=== PATIENT | female | born 1995 | race Caucasian/White ===

== ENCOUNTER 2016-10-06 10:04 | Emergency (ER) | payer OTHER ==
[~2016-10-06] VITALS: Ht 157.5 cm; Wt 81.8 kg
[~2016-10-06 10:04] MED LIST: AMOXICILLIN 50500 MG PO; NAPROSYN500 MG PO; NORCO 325 MG-7.1 TAB PO; PREDNISONE20 MG PO; PRENATAL1 TA7 PO; ULTRAM 50MG TAB50 MG PO; ZOFRAN 4MG T4 MG/TAB PO
[2016-10-06 10:08] VITALS: BP 142/79; PULSE 79
[2016-10-06] MEDS ORDERED: FLEXERIL 1010 MG/TAB PO (10:13)
[2016-10-06] MEDS ORDERED: WELLBUTRIN XL150 MG PO (10:13)
[2016-10-06] MEDS ORDERED: ATIVAN 1MG T1 MG/TAB PO (11:13)
[2016-10-06 11:21] VITALS: TEMP 98.1
== END 2016-10-06 11:22 | disposition home or self-care (01) ==
LOC: COL.ER 10:04
DX: M62.830 Muscle spasm of back (principal); M54.89 Other dorsalgia
CPT/HCPCS: J1885

== ENCOUNTER 2016-10-16 14:19 | Day surgery (SDC) | payer OTHER ==
[~2016-10-16] VITALS: Ht 157.5 cm; Wt 81.8 kg
[2016-10-16] VITALS (9 sets, daily range): BP systolic 105–132; BP diastolic 64–79; PULSE 58–72; TEMP 97.4–97.6
[~2016-10-16 14:19] MED LIST changes: +ATIVAN 1MG T1 MG/TAB PO; +FLEXERIL 1010 MG/TAB PO; +WELLBUTRIN XL150 MG PO
[2016-10-16 15:06] LABS: BASO % 0.1 % (0.0-2.0); EOS # 0.1 (0.0-0.7); EOS % 0.5 % (0-4.0); GRAN # 16.6 (1.4-6.5); GRAN % 81.1 % (42.2-75.2); HEMATOCRIT 37.3 % (35.0-45.0); HEMOGLOBIN 12.1 g/dl (12.0-15.0); LYMPH # 2.6 (1.2-3.4); LYMPH % 12.4 % (20.0-51.0); MEAN CELL VOLUME 78 fl (80.0-95.0); MEAN CORPUSCULAR HEMOGLOBIN 25 pg (26.0-32.0); MEAN CORPUSCULAR HGB CONC 32 g/dl (33.0-37.0); MEAN PLATELET VOLUME 9.8 fl (7.4-10.4); MONO # 1.1 (0.1-0.6); MONO % 5.5 % (1.7-9.3); PLATELET COUNT 391 K/mm3 (130-400); RED BLOOD COUNT 4.77 M/mm3 (4.10-5.30); REDCELL DISTRIBUTION WIDTH-CV 15.5 % (11.5-14.5)
[2016-10-16 15:08] LABS: WHITE BLOOD COUNT 20.5 K/mm3 (4.8-10.8)
[2016-10-16 15:17] LABS: ADJUSTED CALCIUM 9.5 mg/dL (8.4-10.2); ALANINE AMINOTRANSFERASE 119 U/L (9-52); ALKALINE PHOSPHATASE 217 U/L (50-136); ANION GAP 10 mmol/L (7-16); BILIRUBIN,TOTAL 0.8 mg/dL (0.0-1.0); BLOOD UREA NITROGEN 15 mg/dL (7-17); C-REACTIVE PROTEIN < 0.5 mg/dL (0.0-0.9); CALCIUM 9.5 mg/dL (8.4-10.2); CARBON DIOXIDE 28 mmol/L (22-30); CHLORIDE 101 mmol/L (98-107); CREATININE, serum 0.55 mg/dL (0.52-1.25); GLUCOSE 93 mg/dL (74-106); LIPASE 95 U/L (23-300); POTASSIUM 3.8 mmol/L (3.4-5.0); SODIUM 139 mmol/L (137-145); TOTAL PROTEIN 7.3 gm/dL (6.4-8.2)
[2016-10-16 15:34] LABS: PH 7 (5-8); SQUAMOUS EPITHELIAL 0-2 /hpf; URINE APPEARANCE Hazy; URINE BACTERIA None Seen /hpf; URINE BILIRUBIN Negative (NEGATIVE); URINE BLOOD Negative (NEGATIVE); URINE COLOR Yellow; URINE GLUCOSE Negative (NEGATIVE); URINE KETONE Negative (NEGATIVE); URINE RBC 0-2 /hpf; URINE UROBILINOGEN Negative (NEGATIVE)
[2016-10-17 02:28] VITALS: BP 124/60; PULSE 58; TEMP 97.8
[2016-10-17 05:55] VITALS: BP 122/68; BP 135/86; PULSE 78; PULSE 92; TEMP 97.1; TEMP 97.6
[2016-10-17 08:03] LABS: ADJUSTED CALCIUM 9.6 mg/dL (8.4-10.2); ALBUMIN 3.6 gm/dL (3.5-5.0); BILIRUBIN,TOTAL 0.5 mg/dL (0.0-1.0); CALCIUM 9.3 mg/dL (8.4-10.2); CREATININE, serum 0.59 mg/dL (0.52-1.25); POTASSIUM 4.2 mmol/L (3.4-5.0); TOTAL PROTEIN 6.6 gm/dL (6.4-8.2)
[2016-10-17 11:00] VITALS: BP 116/57; PULSE 73; TEMP 98
[2016-10-17] MEDS ORDERED: NORCO 325 MG-7.1 TAB PO (13:51)
== END 2016-10-17 14:25 | disposition home or self-care (01) ==
LOC: COL.ER 14:19 → SURG 17:01 → SDCO 17:01 → SURG 18:06 → SDCO 10-17 14:25
PROVIDERS: Emergency Medicine; Surgery
DX: K80.10 Calculus of gallbladder with chronic cholecystitis without obstruction (principal)
CPT/HCPCS: OP; J0330; J0690; J1170; J1885; J1956; J2175; J2405; J2704; J2765; J3010; J7030; J7120; Q9967

== ENCOUNTER 2016-12-03 23:15 | Emergency (ER) | payer OTHER ==
[~2016-12-03] VITALS: Ht 157.5 cm; Wt 88.6 kg
[2016-12-03 23:31] VITALS: BP 141/76; PULSE 95; TEMP 98.9
[2016-12-04 00:29] LABS: PH 5 (5-8); URINE APPEARANCE Clear; URINE BACTERIA None Seen /hpf; URINE BILIRUBIN Negative (NEGATIVE); URINE BLOOD Negative (NEGATIVE); URINE COLOR Yellow; URINE GLUCOSE Negative (NEGATIVE); URINE KETONE Negative (NEGATIVE); URINE RBC 0-2 /hpf; URINE UROBILINOGEN Negative (NEGATIVE); URINE WBC 0-2 /hpf
== END 2016-12-04 01:21 | disposition left against medical advice (07) ==
LOC: COL.ER 23:15
PROVIDERS: Family Medicine
DX: O26.891 Other specified pregnancy related conditions, first trimester (principal); R10.2 Pelvic and perineal pain; Z3A.01 Less than 8 weeks gestation of pregnancy

== ENCOUNTER 2017-05-02 20:40 | Outpatient (CLI) | payer OTHER ==
[~2017-05-02] VITALS: Ht 157.5 cm; Wt 94.1 kg
[2017-05-02 21:10] VITALS: BP 117/61; PULSE 82; TEMP 98.1
[2017-05-02 21:40] VITALS: BP 122/63; PULSE 81
[2017-05-02 21:41] VITALS: BP 128/72; PULSE 77; TEMP 98.1
[2017-05-02] MEDS ORDERED: PRENATAL MVI (21:55)
[2017-05-02 22:10] VITALS: BP 127/71; PULSE 69
== END 2017-05-02 22:30 | disposition home or self-care (01) ==
LOC: LDR 20:40 → LDRO 20:40 → LDR 22:30
DX: O99.89 Other specified diseases and conditions complicating pregnancy, childbirth and the puerperium (principal); M54.9 Dorsalgia, unspecified; Z3A.26 26 weeks gestation of pregnancy
CPT/HCPCS: OP

== ENCOUNTER 2017-07-01 10:34 | Outpatient (CLI) | payer MEDICAID ==
[~2017-07-01] VITALS: Ht 157.5 cm; Wt 99.5 kg
[~2017-07-01 10:34] MED LIST changes: +PRENATAL MVI
[2017-07-01 10:40] VITALS: BP 129/79; PULSE 107; TEMP 98.3
[2017-07-01 10:52] VITALS: BP 129/79; PULSE 107; TEMP 98.3
== END 2017-07-01 11:34 | disposition home or self-care (01) ==
LOC: LDRO 10:34
DX: O99.613 Diseases of the digestive system complicating pregnancy, third trimester (principal); R10.9 Unspecified abdominal pain; Z3A.35 35 weeks gestation of pregnancy

== ENCOUNTER 2017-07-07 11:56 | Inpatient (IN) | payer MEDICAID ==
[~2017-07-07] VITALS: Ht 160 cm; Wt 102.3 kg
[2017-07-29] MEDS ORDERED: TYLENOL 500MG500 MG PO (23:35)
[2017-07-31] VITALS (34 sets, daily range): BP systolic 110–147; BP diastolic 56–89; PULSE 75–126; TEMP 98.5–99.4
[2017-07-31] MEDS ORDERED: MOTRIN 800800 MG/TAB PO (16:34)
[2017-07-31] MEDS ORDERED: PERCOCET 325 MG1 TA2 PO (16:34)
[2017-07-31 16:38] LABS: BASO % 0.3 % (0.0-2.0); EOS # 0.1 (0.0-0.7); EOS % 0.9 % (0-4.0); GRAN # 7.7 (1.4-6.5); GRAN % 68.9 % (42.2-75.2); LYMPH # 2.5 (1.2-3.4); LYMPH % 22.3 % (20.0-51.0); MEAN CELL VOLUME 76 fl (80.0-100.0); MEAN CORPUSCULAR HGB CONC 32 g/dl (33.0-37.0); MEAN PLATELET VOLUME 10.6 fl (7.4-10.4); MONO # 0.8 (0.1-0.6); MONO % 7.2 % (1.7-9.3); PLATELET COUNT 317 K/mm3 (130-400); RED BLOOD COUNT 4.31 M/mm3 (4.10-5.30); WHITE BLOOD COUNT 11.2 K/mm3 (4.8-10.8)
[2017-07-31 16:45] LABS: HEMATOCRIT 32.7 % (37.0-47.0); HEMOGLOBIN 10.3 g/dl (12.5-16.0); MEAN CORPUSCULAR HEMOGLOBIN 24 pg (27.0-31.0)
[2017-08-01] VITALS (20 sets, daily range): BP systolic 99–165; BP diastolic 52–77; PULSE 75–136; TEMP 98.4–100
[2017-08-01 02:12] LABS: UMBILICAL ARTERY ABG PCO2 44.4 mmHg (30-65)
[2017-08-01 02:12] LABS: UMBILICAL VEIN ABG HCO3 20.6 meq/L (22-28); UMBILICAL VEIN ABG PCO2 45.3 mmHg (30-65); UMBILICAL VEIN ABG PO2 24.8 mmHg; UMBILICAL VEIN ABG pH 7.28 (7.25-7.35)
[2017-08-01 02:15] LABS: UMBILICAL VEIN ABG BE -6.3 mEq/lite (-8--2)
[2017-08-01 02:15] LABS: UMBILICAL ARTERY ABG pH 7.28 (7.28-7.45)
[2017-08-01 07:48] LABS: HEMATOCRIT 25.8 % (37.0-47.0); HEMOGLOBIN 8.2 g/dl (12.5-16.0)
[2017-08-02 04:30] VITALS: BP 115/71; PULSE 85; TEMP 98.6
[2017-08-02 08:30] VITALS: BP 109/57; PULSE 83; TEMP 97.9
[2017-08-02] MEDS ORDERED: FERROUS SU325 MG/TAB PO (11:37)
[2017-08-02 16:09] VITALS: BP 129/69; PULSE 102; TEMP 98.7
== END 2017-08-02 17:00 | disposition home or self-care (01) | DRG 774 ==
LOC: LDR 07-29 07:15 → OB 07-31 14:46 → LDR 08-06 11:56
PROVIDERS: Obstetrics & Gynecology
PROC: 10E0XZZ Delivery of Products of Conception, External Approach (ICD-10-PCS; principal; 2017-08-01)
PROC: 0KQM0ZZ Repair Perineum Muscle, Open Approach (ICD-10-PCS; 2017-08-01)
PROC: 3E033VJ Introduction of Other Hormone into Peripheral Vein, Percutaneous Approach (ICD-10-PCS; 2017-08-01)
DX: O36.0130 Maternal care for anti-D [Rh] antibodies, third trimester, not applicable or unspecified (principal); O72.1 Other immediate postpartum hemorrhage; D62 Acute posthemorrhagic anemia; O99.334 Smoking (tobacco) complicating childbirth; F17.210 Nicotine dependence, cigarettes, uncomplicated; O66.0 Obstructed labor due to shoulder dystocia; O69.1XX0 Labor and delivery complicated by cord around neck, with compression, not applicable or unspecified; O70.1 Second degree perineal laceration during delivery; O99.02 Anemia complicating childbirth; Z3A.39 39 weeks gestation of pregnancy; Z37.0 Single live birth
CPT/HCPCS: J2210; J2590; J2791; J7120

== ENCOUNTER 2017-07-29 23:21 | Outpatient (CLI) | payer MEDICAID ==
[~2017-07-29] VITALS: Ht 160 cm; Wt 102.3 kg
[2017-07-29 23:27] VITALS: BP 134/65; PULSE 111; TEMP 98
[2017-07-29] MEDS ORDERED: TYLENOL 500MG500 MG PO (23:35)
[2017-07-29 23:45] VITALS: BP 133/78; PULSE 96; TEMP 98
[2017-07-30 00:15] VITALS: BP 130/82; PULSE 96
[2017-07-30 00:49] VITALS: BP 135/67; PULSE 96
[2017-07-31] MEDS ORDERED: MOTRIN 800800 MG/TAB PO (16:34)
[2017-07-31] MEDS ORDERED: PERCOCET 325 MG1 TA2 PO (16:34)
== END 2017-07-30 01:15 | disposition home or self-care (01) ==
LOC: LDRO 23:21
DX: O26.893 Other specified pregnancy related conditions, third trimester (principal); R03.0 Elevated blood-pressure reading, without diagnosis of hypertension; Z87.59 Personal history of other complications of pregnancy, childbirth and the puerperium; Z3A.39 39 weeks gestation of pregnancy

== ENCOUNTER → 2018-03-26 | Outpatient (CLI) | payer OTHER ==
[~2018-03-26] MED LIST changes: +FERROUS SU325 MG/TAB PO; +MOTRIN 800800 MG/TAB PO; +PERCOCET 325 MG1 TA2 PO; +TYLENOL 500MG500 MG PO
== END ==
LOC: MC.RAD 14:15
DX: N63.31 Unspecified lump in axillary tail of the right breast (principal)

== ENCOUNTER 2018-05-04 03:32 | Emergency (ER) | payer SELFPAY ==
[~2018-05-04] VITALS: Ht 157.5 cm; Wt 103.7 kg
[2018-05-04 03:34] VITALS: BP 137/85; TEMP 99
[2018-05-04] MEDS ORDERED: DEPO-PROVER150 MG/M1 IM (03:39)
[2018-05-04] MEDS ORDERED: AMOXICILLIN 50500 MG PO (04:15)
[2018-05-04 04:56] VITALS: PULSE 80
== END 2018-05-04 04:56 | disposition home or self-care (01) ==
LOC: COL.ER 03:32
DX: J02.9 Acute pharyngitis, unspecified (principal)

== ENCOUNTER 2018-06-03 16:43 | Emergency (ER) | payer SELFPAY ==
[~2018-06-03] VITALS: Ht 157.5 cm; Wt 103.6 kg
[~2018-06-03 16:43] MED LIST changes: +DEPO-PROVER150 MG/M1 IM
[2018-06-03 16:46] VITALS: BP 151/75; TEMP 98.7
[2018-06-03 18:55] VITALS: PULSE 76
== END 2018-06-03 18:55 | disposition home or self-care (01) ==
LOC: COL.ER 16:43
DX: R51 Headache (principal); Z90.49 Acquired absence of other specified parts of digestive tract; Z88.5 Allergy status to narcotic agent; Z91.040 Latex allergy status; Z88.8 Allergy status to other drugs, medicaments and biological substances; Z32.02 Encounter for pregnancy test, result negative
CPT/HCPCS: J1885; J2405

== ENCOUNTER 2019-02-17 02:06 | Emergency (ER) | payer SELFPAY ==
[~2019-02-17] VITALS: Ht 157.5 cm; Wt 104.5 kg
[2019-02-17 02:14] VITALS: TEMP 98
[2019-02-17 02:46] VITALS: BP 111/78; PULSE 90
== END 2019-02-17 02:55 | disposition home or self-care (01) ==
LOC: COL.ER 02:06
DX: S50.01XA Contusion of right elbow, initial encounter (principal); Z90.49 Acquired absence of other specified parts of digestive tract; W01.0XXA Fall on same level from slipping, tripping and stumbling without subsequent striking against object, initial encounter; Y92.009 Unspecified place in unspecified non-institutional (private) residence as the place of occurrence of the external cause

== ENCOUNTER 2019-05-27 23:24 | Emergency (ER) | payer SELFPAY ==
[~2019-05-27] VITALS: Wt 104.5 kg
[2019-05-27 23:58] VITALS: TEMP 98.3
[2019-05-28 01:31] LABS: COLLECTION METHOD CLEAN CATCH
[2019-05-28 01:39] LABS: MUCOUS Present /lpf; PH 5 (5-8); URINE APPEARANCE Hazy; URINE BACTERIA Rare /hpf; URINE BILIRUBIN Negative (NEGATIVE); URINE BLOOD Negative (NEGATIVE); URINE CALCIUM OXALATE CRYSTAL Present /hpf; URINE COLOR Yellow; URINE GLUCOSE Negative (NEGATIVE); URINE KETONE Trace (NEGATIVE); URINE LEUKOCYTE ESTERASE Negative (NEGATIVE); URINE NITRATE Negative (NEGATIVE); URINE PROTEIN(semi-quant) Negative (NEGATIVE)
[2019-05-28 02:50] VITALS: BP 118/62; PULSE 92
== END 2019-05-28 02:51 | disposition home or self-care (01) ==
LOC: COL.ER 23:24
PROVIDERS: Emergency Medicine
DX: O26.891 Other specified pregnancy related conditions, first trimester (principal); O99.331 Smoking (tobacco) complicating pregnancy, first trimester; O99.511 Diseases of the respiratory system complicating pregnancy, first trimester; R09.81 Nasal congestion; J45.909 Unspecified asthma, uncomplicated; F17.210 Nicotine dependence, cigarettes, uncomplicated; Z90.89 Acquired absence of other organs; Z3A.00 Weeks of gestation of pregnancy not specified

== ENCOUNTER 2019-11-24 11:06 | Outpatient (CLI) | payer MEDICAID ==
[~2019-11-24] VITALS: Ht 160 cm; Wt 102.7 kg
[2019-11-24 11:22] VITALS: BP 126/60; PULSE 90; TEMP 98.6
[2019-11-24] MEDS ORDERED: PRENATAL (11:34)
[2019-11-24 11:45] VITALS: BP 126/60; PULSE 90; TEMP 98.6
--- NOTE | 2019-11-24 11:45 | NUR ---
Patient reports normal movement since being at hospital. See physician notification. 1145- Reactive category 1 FHR strip obtained. Patient reports occasional mild cramping. States she has not had any water today. Encouraged oral hydration and rest. Patient desires to be discharged, physician orders for discharge with labor precautions. Off EFM.
--- NOTE | 2019-11-24 12:00 | NUR ---
Patient given discharge instructions. Reviewed labor precautions and kick counts. Encouraged to increase oral hydration and decrease caffeine intake. Rest. Patient denies questions and leaves ambulatory.
== END 2019-11-24 12:00 | disposition home or self-care (01) ==
LOC: LDRO 11:06
DX: O36.8130 Decreased fetal movements, third trimester, not applicable or unspecified (principal); Z3A.29 29 weeks gestation of pregnancy

== ENCOUNTER 2019-12-30 09:06 | Outpatient (CLI) | payer MEDICAID ==
[~2019-12-30] VITALS: Ht 157.5 cm; Wt 104.5 kg
[~2019-12-30 09:06] MED LIST changes: +PRENATAL
[2019-12-30 09:12] VITALS: BP 124/65; PULSE 93; TEMP 98.3
--- NOTE | 2019-12-30 09:55 | NUR ---
0912- Pt arrives on unit ambulatory with complaints of leaking fluid at 0200. Denies large amounts of leaking after that. Did not wear a pad into hospital. Pt into bathroom, changes into gown. 0918- Pt into bed, EFM and TOCO on and tracing. VSS. Assessment completed. Pt denies contractions but is having vaginal pressure that is new today. Denies VB. +FM. 0931- SVE by this RN, /3, Amniotrace negative, no fluid noted with exam. 0948- EFM and TOCO off. Discussed labor precautions and when to return to hospital, plan to dischage Pt home at this time. Pt denies questions or concerns. Pt up to change into street clothes. 0955- Discharge paperwork given and explained. Pt ambulates off unit in stable condition.
== END 2019-12-30 09:55 | disposition home or self-care (01) ==
LOC: LDRO 09:06 → LDR 09:20 → LDRO 09:55
DX: Z34.83 Encounter for supervision of other normal pregnancy, third trimester (principal); Z3A.35 35 weeks gestation of pregnancy
CPT/HCPCS: OP

== ENCOUNTER 2020-01-07 19:40 | Emergency (ER) | payer MEDICAID ==
[~2020-01-07] VITALS: Ht 157.5 cm; Wt 105.2 kg
[2020-01-07 19:46] VITALS: TEMP 98.3
[2020-01-07 20:12] LABS: COLLECTION METHOD CLEAN CATCH
[2020-01-07 20:34] LABS: MUCOUS Present /lpf; PH 6 (5-8); SQUAMOUS EPITHELIAL 0-2 /hpf; URINE APPEARANCE Hazy; URINE BACTERIA Rare /hpf; URINE BILIRUBIN Negative (NEGATIVE); URINE BLOOD Negative (NEGATIVE); URINE COLOR Yellow; URINE GLUCOSE Negative (NEGATIVE); URINE KETONE Negative (NEGATIVE); URINE LEUKOCYTE ESTERASE Negative (NEGATIVE); URINE NITRATE Negative (NEGATIVE); URINE PROTEIN(semi-quant) Negative (NEGATIVE); URINE RBC 0-2 /hpf; URINE UROBILINOGEN Negative (NEGATIVE)
[2020-01-07 20:36] LABS: BASO % 0.2 % (0.0-2.0); EOS # 0.1 (0.0-0.7); GRAN # 7.4 (1.4-6.5); GRAN % 69.7 % (42.2-75.2); LYMPH # 2.3 (1.2-3.4); LYMPH % 21.3 % (20.0-51.0); MEAN CELL VOLUME 77 fl (80.0-100.0); MEAN CORPUSCULAR HGB CONC 32 g/dl (33.0-37.0); MEAN PLATELET VOLUME 9.7 fl (7.4-10.4); MONO # 0.8 (0.1-0.6); MONO % 7.3 % (1.7-9.3); PLATELET COUNT 298 K/mm3 (130-400); RED BLOOD COUNT 3.89 M/mm3 (4.10-5.30); REDCELL DISTRIBUTION WIDTH-CV 14.1 % (11.5-14.5)
[2020-01-07 20:37] LABS: HEMOGLOBIN 9.5 g/dl (12.5-16.0); MEAN CORPUSCULAR HEMOGLOBIN 24 pg (27.0-31.0)
[2020-01-07 20:44] LABS: ALBUMIN 3.3 gm/dL (3.5-5.0); BILIRUBIN,TOTAL 0.4 mg/dL (0.0-1.0); CALCIUM 8.7 mg/dL (8.4-10.2); CREATININE, serum 0.48 (0.52-1.25); TOTAL PROTEIN 6.7 gm/dL (6.4-8.2)
--- NOTE | 2020-01-07 21:00 | NUR ---
Patient being seen in the ER for shortness of breath. She is a G3L2 at 36.1 weeks gestation. Patient reports good movement and denies leaking of fluid or vaginal bleeding. She also denies having any contractions. EFMs explained and applied. FHR 130 bpm and reactive. 2100 Reactive NST obtained.
[2020-01-07 21:30] VITALS: BP 111/61; PULSE 88
== END 2020-01-07 21:30 | disposition home or self-care (01) ==
LOC: COL.ER 19:40
PROVIDERS: Nurse Practitioner
DX: O26.893 Other specified pregnancy related conditions, third trimester (principal); R51 Headache; Z87.891 Personal history of nicotine dependence; Z91.010 Allergy to peanuts; Z3A.36 36 weeks gestation of pregnancy
CPT/HCPCS: J7030

== ENCOUNTER 2020-01-29 08:30 | Inpatient (IN) | payer MEDICAID ==
[~2020-01-29] VITALS: Ht 160.1 cm; Wt 108.2 kg
[2020-01-29] VITALS (16 sets, daily range): BP systolic 104–138; BP diastolic 55–97; PULSE 69–89; TEMP 97.9–98.3
[2020-01-29] MEDS ORDERED: PERCOCET 325 MG1 TA2 PO (08:42)
[2020-01-29] MEDS ORDERED: MOTRIN 800800 MG/TAB PO (08:42)
[2020-01-29 09:46] LABS: BASO % 0.2 % (0.0-2.0); EOS # 0.1 (0.0-0.7); EOS % 0.9 % (0-4.0); GRAN % 70.1 % (42.2-75.2); HEMOGLOBIN 10.4 g/dl (12.5-16.0); LYMPH # 2.8 (1.2-3.4); MEAN CELL VOLUME 77 fl (80.0-100.0); MEAN CORPUSCULAR HEMOGLOBIN 24 pg (27.0-31.0); MEAN CORPUSCULAR HGB CONC 31 g/dl (33.0-37.0); MEAN PLATELET VOLUME 10.6 fl (7.4-10.4); MONO # 0.8 (0.1-0.6); MONO % 6.4 % (1.7-9.3); PLATELET COUNT 317 K/mm3 (130-400); RED BLOOD COUNT 4.38 M/mm3 (4.10-5.30); REDCELL DISTRIBUTION WIDTH-CV 14.7 % (11.5-14.5)
[2020-01-29 09:48] LABS: HEMATOCRIT 33.7 % (37.0-47.0)
[2020-01-30 01:15] VITALS: BP 122/76; PULSE 87; TEMP 98.8
[2020-01-30 06:40] VITALS: BP 105/51; PULSE 92; TEMP 98.1
--- NOTE | 2020-01-30 09:54 | NUR ---
SW responded to consult and staffed with OB RN and the patient's RN. SW had received a consult stating that they are screening for presence of illegal drugs in expectant mother. The patient's RN reports that this was an accidental order and there was no history of drug use. The RN reports that they have no concerns for patient and baby. No additional needs at this time.
--- NOTE | 2020-01-30 10:15 | NUR ---
Rests in bed, alert. Denies any needs at this time.
--- NOTE | 2020-01-30 12:55 | NUR ---
Rests in bed, alert. Request pain medication. Percocet 5/325 mg two given per request and as ordered.
[2020-01-30 17:30] VITALS: BP 126/80; PULSE 88; TEMP 98.3
[2020-01-30 21:00] VITALS: BP 114/54; PULSE 79; TEMP 98.1
[2020-01-31 08:30] VITALS: BP 124/77; PULSE 87; TEMP 98.9
== END 2020-01-31 13:20 | disposition home or self-care (01) | DRG 788 ==
LOC: OB 08:30 → LDR 08:42 → OB 01-31 13:20
PROVIDERS: ADMIT Obstetrics & Gynecology
PROC: 10D00Z1 Extraction of Products of Conception, Low, Open Approach (ICD-10-PCS; principal; 2020-01-29)
DX: O82 Encounter for cesarean delivery without indication (principal); Z3A.39 39 weeks gestation of pregnancy; Z37.0 Single live birth; O99.214 Obesity complicating childbirth; O99.62 Diseases of the digestive system complicating childbirth; K21.9 Gastro-esophageal reflux disease without esophagitis; O99.02 Anemia complicating childbirth; O99.344 Other mental disorders complicating childbirth; Z88.5 Allergy status to narcotic agent; Z91.040 Latex allergy status; Z87.891 Personal history of nicotine dependence; F41.8 Other specified anxiety disorders
CPT/HCPCS: J0690; J1885; J2210; J2270; J2370; J2405; J2590; J2791; J7120

== ENCOUNTER 2020-02-04 19:32 | Emergency (ER) | payer MEDICAID ==
[~2020-02-04] VITALS: Ht 160 cm; Wt 100.0 kg
[2020-02-04 19:39] VITALS: TEMP 98.9
[2020-02-04 20:31] LABS: BASO % 0.3 % (0.0-2.0); EOS # 0.2 (0.0-0.7); EOS % 1.5 % (0-4.0); GRAN # 7.8 (1.4-6.5); GRAN % 68.8 % (42.2-75.2); LYMPH # 2.4 (1.2-3.4); LYMPH % 21.6 % (20.0-51.0); MEAN CELL VOLUME 79 fl (80.0-100.0); MEAN CORPUSCULAR HGB CONC 30 g/dl (33.0-37.0); MEAN PLATELET VOLUME 9.7 fl (7.4-10.4); MONO # 0.8 (0.1-0.6); MONO % 7.1 % (1.7-9.3); PLATELET COUNT 374 K/mm3 (130-400); RED BLOOD COUNT 3.71 M/mm3 (4.10-5.30)
[2020-02-04 20:34] LABS: ALBUMIN 3.4 gm/dL (3.5-5.0); BILIRUBIN,TOTAL 0.4 mg/dL (0.0-1.0); C-REACTIVE PROTEIN 1.1 mg/dL (0.0-0.9); CALCIUM 8.7 mg/dL (8.4-10.2); CREATININE, serum 0.62 (0.52-1.25); POTASSIUM 4.2 mmol/L (3.4-5.0); TOTAL PROTEIN 6.7 gm/dL (6.4-8.2)
[2020-02-04 20:47] LABS: HEMATOCRIT 29.2 % (37.0-47.0); HEMOGLOBIN 8.8 g/dl (12.5-16.0); MEAN CORPUSCULAR HEMOGLOBIN 24 pg (27.0-31.0)
[2020-02-04 21:55] LABS: COLLECTION METHOD CLEAN CATCH
[2020-02-04 22:04] LABS: MUCOUS Present /lpf; PH 6 (5-8); SQUAMOUS EPITHELIAL 0-2 /hpf; URINE APPEARANCE Clear; URINE BACTERIA None Seen /hpf; URINE BILIRUBIN Negative (NEGATIVE); URINE BLOOD 3+ (NEGATIVE); URINE COLOR Yellow; URINE GLUCOSE Negative (NEGATIVE); URINE KETONE Negative (NEGATIVE); URINE LEUKOCYTE ESTERASE Trace (NEGATIVE); URINE NITRATE Negative (NEGATIVE); URINE PROTEIN(semi-quant) Negative (NEGATIVE); URINE UROBILINOGEN Negative (NEGATIVE)
[2020-02-04] MEDS ORDERED: NORMODYNE200 MG PO (22:37)
[2020-02-04] MEDS ORDERED: IBU800 M1 PO (23:15)
[2020-02-04] MEDS ORDERED: PERCOCET 325 MG1 TA2 PO (23:16)
[2020-02-05 00:19] VITALS: BP 155/86; PULSE 61
== END 2020-02-05 00:27 | disposition home or self-care (01) ==
LOC: COL.ER 19:32
PROVIDERS: Family Medicine
DX: O16.5 Unspecified maternal hypertension, complicating the puerperium (principal); Z79.1 Long term (current) use of non-steroidal anti-inflammatories (NSAID)
CPT/HCPCS: J2405; J7120

== ENCOUNTER 2020-02-05 09:17 | Emergency (ER) | payer MEDICAID ==
[~2020-02-05] VITALS: Ht 160 cm; Wt 100.0 kg
[~2020-02-05 09:17] MED LIST changes: +IBU800 M1 PO; +NORMODYNE200 MG PO
[2020-02-05 09:22] VITALS: TEMP 97.4
[2020-02-05 09:51] LABS: BASO # 0.1 (0.0-0.2); BASO % 0.4 % (0.0-2.0); EOS # 0.1 (0.0-0.7); GRAN # 7.9 (1.4-6.5); GRAN % 71.1 % (42.2-75.2); LYMPH # 2.2 (1.2-3.4); MEAN CELL VOLUME 80 fl (80.0-100.0); MEAN CORPUSCULAR HGB CONC 29 g/dl (33.0-37.0); MEAN PLATELET VOLUME 9.5 fl (7.4-10.4); MONO # 0.8 (0.1-0.6); MONO % 6.9 % (1.7-9.3); PLATELET COUNT 391 K/mm3 (130-400); RED BLOOD COUNT 3.73 M/mm3 (4.10-5.30); REDCELL DISTRIBUTION WIDTH-CV 15.2 % (11.5-14.5)
[2020-02-05 09:53] LABS: HEMATOCRIT 29.7 % (37.0-47.0); HEMOGLOBIN 8.7 g/dl (12.5-16.0); MEAN CORPUSCULAR HEMOGLOBIN 23 pg (27.0-31.0)
[2020-02-05 10:01] LABS: ALBUMIN 3.4 gm/dL (3.5-5.0); BILIRUBIN,TOTAL 0.4 mg/dL (0.0-1.0); CALCIUM 8.6 mg/dL (8.4-10.2); CREATININE, serum 0.6 (0.52-1.25); TOTAL PROTEIN 6.9 gm/dL (6.4-8.2)
[2020-02-05 13:29] VITALS: BP 134/79; PULSE 97
== END 2020-02-05 13:38 | disposition home or self-care (01) ==
LOC: COL.ER 09:17
PROVIDERS: Nurse Practitioner Primary Care
DX: O16.5 Unspecified maternal hypertension, complicating the puerperium (principal); Z79.1 Long term (current) use of non-steroidal anti-inflammatories (NSAID); Z79.891 Long term (current) use of opiate analgesic

== ENCOUNTER 2020-05-30 16:54 | Emergency (ER) | payer MEDICAID ==
[~2020-05-30] VITALS: Ht 157.5 cm; Wt 98.2 kg
[2020-05-30 17:03] VITALS: TEMP 98.7
[2020-05-30] MEDS ORDERED: PROCARDIA XL 6060 MG PO (17:08)
[2020-05-30 17:34] VITALS: BP 125/84; PULSE 82
== END 2020-05-30 17:39 | disposition home or self-care (01) ==
LOC: COL.ER 16:54
DX: B34.9 Viral infection, unspecified (principal); F17.210 Nicotine dependence, cigarettes, uncomplicated; Z20.828 Contact with and (suspected) exposure to other viral communicable diseases

== ENCOUNTER 2020-07-09 02:33 | Emergency (ER) | payer MEDICAID ==
[~2020-07-09] VITALS: Ht 160 cm; Wt 102.3 kg
[~2020-07-09 02:33] MED LIST changes: +PROCARDIA XL 6060 MG PO
[2020-07-09 02:38] VITALS: TEMP 97.9
[2020-07-09] MEDS ORDERED: NORCO 325 MG-51 TAB PO (02:52)
[2020-07-09 03:06] VITALS: BP 140/78; PULSE 80
== END 2020-07-09 03:09 | disposition home or self-care (01) ==
LOC: COL.ER 02:33
DX: S02.5XXA Fracture of tooth (traumatic), initial encounter for closed fracture (principal); K04.7 Periapical abscess without sinus; I10 Essential (primary) hypertension; Z87.891 Personal history of nicotine dependence; Z88.6 Allergy status to analgesic agent; X58.XXXA Exposure to other specified factors, initial encounter

== ENCOUNTER 2020-07-25 20:11 | Emergency (ER) | payer MEDICAID ==
[~2020-07-25] VITALS: Ht 157.5 cm; Wt 55.0 kg
[~2020-07-25 20:11] MED LIST changes: +AMOXICILLIN 8751 TAB PO; +NORCO 325 MG-51 TAB PO
[2020-07-25] MEDS ORDERED: PERCOCET 325 MG1 TA2 PO (21:16)
[2020-07-25 21:30] VITALS: BP 132/73; PULSE 88; TEMP 98.6
== END 2020-07-25 21:32 | disposition home or self-care (01) ==
LOC: COL.ER 20:11
DX: K02.9 Dental caries, unspecified (principal); I10 Essential (primary) hypertension; Z23 Encounter for immunization; Z88.5 Allergy status to narcotic agent

== ENCOUNTER 2020-08-29 11:04 | Emergency (ER) | payer MEDICAID ==
[~2020-08-29] VITALS: Ht 157.5 cm; Wt 100.9 kg
[2020-08-29 11:10] VITALS: TEMP 98.9
[2020-08-29] MEDS ORDERED: CLEOCIN HCL300 MG PO (11:49)
[2020-08-29] MEDS ORDERED: NORCO 325 MG-51 TAB PO (11:50)
[2020-08-29 12:05] VITALS: BP 119/77; PULSE 100
== END 2020-08-29 12:00 | disposition home or self-care (01) ==
LOC: COL.ER 11:04
DX: K04.7 Periapical abscess without sinus (principal); F17.200 Nicotine dependence, unspecified, uncomplicated; Z88.5 Allergy status to narcotic agent; Z88.8 Allergy status to other drugs, medicaments and biological substances

== ENCOUNTER 2020-12-14 15:21 | Emergency (ER) | payer MEDICAID ==
[~2020-12-14] VITALS: Ht 157.5 cm; Wt 85.0 kg
[~2020-12-14 15:21] MED LIST changes: +CLEOCIN HCL300 MG PO
[2020-12-14 15:41] VITALS: BP 129/82; TEMP 98.2
[2020-12-14] MEDS ORDERED: PREDNISONE50 MG PO (16:45)
[2020-12-14 16:51] VITALS: PULSE 81
== END 2020-12-14 16:52 | disposition home or self-care (01) ==
LOC: COL.ER 15:21
DX: L24.9 Irritant contact dermatitis, unspecified cause (principal); Z32.02 Encounter for pregnancy test, result negative; I10 Essential (primary) hypertension; F17.210 Nicotine dependence, cigarettes, uncomplicated; Z88.5 Allergy status to narcotic agent; Z88.8 Allergy status to other drugs, medicaments and biological substances; Z91.040 Latex allergy status; Z79.899 Other long term (current) drug therapy

== ENCOUNTER 2021-01-04 16:00 | Emergency (ER) | payer MEDICAID ==
[~2021-01-04] VITALS: Ht 157.5 cm; Wt 84.1 kg
[~2021-01-04 16:00] MED LIST changes: +PREDNISONE50 MG PO
[2021-01-04 16:14] VITALS: TEMP 98.1
[2021-01-04 17:47] VITALS: BP 130/88; PULSE 89
== END 2021-01-04 17:49 | disposition home or self-care (01) ==
LOC: COL.ER 16:00
DX: S00.12XA Contusion of left eyelid and periocular area, initial encounter (principal); S24.109A Unspecified injury at unspecified level of thoracic spinal cord, initial encounter; Z88.5 Allergy status to narcotic agent; Z91.040 Latex allergy status; Z88.8 Allergy status to other drugs, medicaments and biological substances; Y04.2XXA Assault by strike against or bumped into by another person, initial encounter